=== PATIENT | male | born 1985 | race Asian ===

== ENCOUNTER 2016-04-01 16:30 | Emergency (ER) | payer OTHER ==
[~2016-04-01] VITALS: Ht 179 cm; Wt 107.7 kg
[~2016-04-01 16:30] MED LIST: COLACE50 MG PO
[2016-04-01 16:32] VITALS: TEMP 99.2
[2016-04-01] MEDS ORDERED: HYGROTON 2525 MG/TAB (16:36)
[2016-04-01 17:16] LABS: BASO % 0.6 % (0.0-2.0); EOS # 0.1 (0.0-0.7); GRAN # 3.6 (1.4-6.5); GRAN % 73.9 % (42.2-75.2); HEMATOCRIT 43.2 % (42.0-52.0); LYMPH # 0.8 (1.2-3.4); LYMPH % 16.9 % (20.0-51.0); MEAN CELL VOLUME 70 fl (80.0-100.0); MEAN CORPUSCULAR HEMOGLOBIN 23 pg (27.0-31.0); MEAN CORPUSCULAR HGB CONC 32 g/dl (33.0-37.0); MEAN PLATELET VOLUME 10.1 fl (7.4-10.4); MONO # 0.4 (0.1-0.6); MONO % 7.6 % (1.7-9.3); PLATELET COUNT 237 K/mm3 (130-400); RED BLOOD COUNT 6.18 M/mm3 (4.20-5.60); WHITE BLOOD COUNT 4.9 K/mm3 (4.8-10.8)
[2016-04-01 17:31] LABS: ADJUSTED CALCIUM 9.5 mg/dL (8.4-10.2); ALANINE AMINOTRANSFERASE 55 U/L (21-72); ALBUMIN 4.6 gm/dL (3.5-5.0); ALKALINE PHOSPHATASE 84 U/L (50-136); ANION GAP 12 mmol/L (7-16); BILIRUBIN,TOTAL 0.7 mg/dL (0.0-1.0); BLOOD UREA NITROGEN 15 mg/dL (9-20); CARBON DIOXIDE 26 mmol/L (22-30); CHLORIDE 102 mmol/L (98-107); GLUCOSE 104 mg/dL (74-106); POTASSIUM 4.1 mmol/L (3.4-5.0); SODIUM 140 mmol/L (137-145); TOTAL PROTEIN 7.8 gm/dL (6.4-8.2)
[2016-04-01 17:43] LABS: TROPONIN-I < 0.012 ng/mL (0.000-0.034)
[2016-04-01 17:58] VITALS: BP 142/59; PULSE 85
== END 2016-04-01 17:59 | disposition home or self-care (01) ==
LOC: COL.ER 16:30
PROVIDERS: Emergency Medicine
DX: I10 Essential (primary) hypertension (principal); R00.2 Palpitations

== ENCOUNTER 2016-04-03 02:00 | Emergency (ER) | payer OTHER ==
[~2016-04-03] VITALS: Ht 454.7 cm; Wt 107.7 kg
[~2016-04-03 02:00] MED LIST changes: +HYGROTON 2525 MG/TAB
[2016-04-03 02:23] LABS: BASO % 0.6 % (0.0-2.0); EOS # 0.1 (0.0-0.7); GRAN # 2.2 (1.4-6.5); HEMOGLOBIN 14.9 g/dl (13.5-18.0); LYMPH # 2.2 (1.2-3.4); LYMPH % 43.7 % (20.0-51.0); MEAN CELL VOLUME 71 fl (80.0-100.0); MEAN CORPUSCULAR HEMOGLOBIN 22 pg (27.0-31.0); MEAN CORPUSCULAR HGB CONC 32 g/dl (33.0-37.0); MEAN PLATELET VOLUME 10.7 fl (7.4-10.4); MONO # 0.5 (0.1-0.6); MONO % 9.5 % (1.7-9.3); PLATELET COUNT 257 K/mm3 (130-400); RED BLOOD COUNT 6.64 M/mm3 (4.20-5.60); REDCELL DISTRIBUTION WIDTH-CV 17.5 % (11.5-14.5); WHITE BLOOD COUNT 4.9 K/mm3 (4.8-10.8)
[2016-04-03 02:33] LABS: ADJUSTED CALCIUM 8.7 mg/dL (8.4-10.2); ALANINE AMINOTRANSFERASE 61 U/L (21-72); ALBUMIN 4.9 gm/dL (3.5-5.0); ALKALINE PHOSPHATASE 109 U/L (50-136); ANION GAP 12 mmol/L (7-16); BILIRUBIN,TOTAL 0.6 mg/dL (0.0-1.0); BLOOD UREA NITROGEN 18 mg/dL (9-20); CALCIUM 9.4 mg/dL (8.4-10.2); CARBON DIOXIDE 29 mmol/L (22-30); CHLORIDE 99 mmol/L (98-107); CREATININE, serum 1.11 mg/dL (0.66-1.25); GLUCOSE 121 mg/dL (74-106); POTASSIUM 4.2 mmol/L (3.4-5.0); SODIUM 140 mmol/L (137-145); TOTAL PROTEIN 8.5 gm/dL (6.4-8.2)
[2016-04-03 02:35] LABS: PROTHROMBIN TIME 11.1 SECONDS (9.7-12.8)
[2016-04-03 02:38] LABS: PARTIAL THROMBOPLASTIN TIME 32.3 SECONDS (26.0-37.0)
[2016-04-03 02:45] LABS: TROPONIN-I < 0.012 ng/mL (0.000-0.034)
[2016-04-03 04:18] VITALS: BP 124/72; PULSE 95
== END 2016-04-03 04:19 | disposition home or self-care (01) ==
LOC: COL.ER 02:00
PROVIDERS: Family Medicine
DX: R07.89 Other chest pain (principal); F41.9 Anxiety disorder, unspecified; I10 Essential (primary) hypertension; G44.40 Drug-induced headache, not elsewhere classified, not intractable; T46.3X5A Adverse effect of coronary vasodilators, initial encounter

== ENCOUNTER 2016-04-13 20:40 | Emergency (ER) | payer OTHER ==
[~2016-04-13] VITALS: Ht 179 cm; Wt 116.8 kg
[2016-04-13 21:03] VITALS: TEMP 99.3
[2016-04-13] MEDS ORDERED: ASPIRIN 81M81 MG/TA2 PO (21:07)
[2016-04-13] MEDS ORDERED: ZESTRIL 20MG TA20 MG PO (21:07)
[2016-04-13 21:45] LABS: BASO % 0.6 % (0.0-2.0); EOS # 0.1 (0.0-0.7); EOS % 1.7 % (0-4.0); GRAN # 3.6 (1.4-6.5); GRAN % 57.7 % (42.2-75.2); HEMATOCRIT 44.4 % (42.0-52.0); HEMOGLOBIN 14.3 g/dl (13.5-18.0); LYMPH % 31.9 % (20.0-51.0); MEAN CELL VOLUME 70 fl (80.0-100.0); MEAN CORPUSCULAR HEMOGLOBIN 23 pg (27.0-31.0); MEAN CORPUSCULAR HGB CONC 32 g/dl (33.0-37.0); MEAN PLATELET VOLUME 10.7 fl (7.4-10.4); MONO # 0.5 (0.1-0.6); MONO % 8.1 % (1.7-9.3); PLATELET COUNT 265 K/mm3 (130-400); RED BLOOD COUNT 6.33 M/mm3 (4.20-5.60); REDCELL DISTRIBUTION WIDTH-CV 17.4 % (11.5-14.5); WHITE BLOOD COUNT 6.3 K/mm3 (4.8-10.8)
[2016-04-13 21:50] LABS: PROTHROMBIN TIME 10.8 SECONDS (9.7-12.8)
[2016-04-13 22:01] LABS: ADJUSTED CALCIUM 8.8 mg/dL (8.4-10.2); ALANINE AMINOTRANSFERASE 86 U/L (21-72); ALBUMIN 4.7 gm/dL (3.5-5.0); ALKALINE PHOSPHATASE 85 U/L (50-136); ANION GAP 14 mmol/L (7-16); BILIRUBIN,TOTAL 0.5 mg/dL (0.0-1.0); BLOOD UREA NITROGEN 15 mg/dL (9-20); CALCIUM 9.4 mg/dL (8.4-10.2); CARBON DIOXIDE 28 mmol/L (22-30); CHLORIDE 100 mmol/L (98-107); CREATININE, serum 1.01 mg/dL (0.66-1.25); GLUCOSE 143 mg/dL (74-106); POTASSIUM 3.1 mmol/L (3.4-5.0); SODIUM 141 mmol/L (137-145); TOTAL PROTEIN 8.1 gm/dL (6.4-8.2)
[2016-04-13 22:18] LABS: TROPONIN-I < 0.012 ng/mL (0.000-0.034)
[2016-04-13] MEDS ORDERED: ATIVAN 0.50.5 MG/TAB PO (23:10)
[2016-04-13 23:27] VITALS: BP 156/73; PULSE 88
== END 2016-04-13 23:27 | disposition home or self-care (01) ==
LOC: COL.ER 20:40
PROVIDERS: Emergency Medicine
DX: R07.9 Chest pain, unspecified (principal); I10 Essential (primary) hypertension
CPT/HCPCS: J2270; Q9967

== ENCOUNTER 2016-06-11 01:28 | Emergency (ER) | payer OTHER ==
[~2016-06-11] VITALS: Wt 127.3 kg
[~2016-06-11 01:28] MED LIST changes: +ASPIRIN 81M81 MG/TA2 PO; +ATIVAN 0.50.5 MG/TAB PO; +ZESTRIL 20MG TA20 MG PO
[2016-06-11 01:35] VITALS: TEMP 98.3
[2016-06-11] MEDS ORDERED: ASPIRIN 81M81 MG/TA2 PO (01:38)
[2016-06-11 03:28] VITALS: BP 154/82; PULSE 84
== END 2016-06-11 03:29 | disposition home or self-care (01) ==
LOC: COL.ER 01:28
DX: R07.89 Other chest pain (principal); F41.9 Anxiety disorder, unspecified